=== PATIENT | female | born 1955 | race Caucasian/White ===

== ENCOUNTER 2020-03-24 10:01 | Outpatient (CLI) | payer OTHER ==
--- NOTE | 2020-03-24 11:25 | MMO ---
Bilateral MAMMO Bilat Diag [facility]. CLINICAL HISTORY: Patient is 65 years old and is seen for diagnostic exam and lump or thickening in the right breast. The patient has no family history of breast cancer. The patient has no personal history of cancer. The patient has a history of left Excisional Biopsy - mole removal greather than 10 years ago. VIEWS: The views performed were: bilateral craniocaudal with tomosynthesis; bilateral mediolateral oblique with tomosynthesis; and bilateral mediolateral with tomosynthesis. FILMS COMPARED: The present examination has been compared to prior imaging studies performed at [facility] on 07/17/2014, at [facility] on 03/24/2020, and at [facility] on 04/03/2013 and 11/03/2015. This study has been interpreted with the assistance of computer-aided detection. MAMMOGRAM FINDINGS: There are scattered fibroglandular densities. Finding 1: There are stable benign appearing calcifications seen in both breasts. Finding 2: There is a stable asymmetry seen in the sub-areolar region of the right breast. Mild ductal dilatation. There are no suspicious masses, suspicious calcifications, or new areas of architectural distortion. IMPRESSION: THERE IS NO MAMMOGRAPHIC EVIDENCE OF MALIGNANCY. A ROUTINE FOLLOW-UP MAMMOGRAM IN 1 YEAR IS RECOMMENDED. THE RESULTS OF THIS EXAM WERE SENT TO THE PATIENT. ACR BI-RADS Category 2 - Benign finding MAMMOGRAPHY NOTE: 1. A negative mammogram report should not delay a biopsy if a dominant of clinically suspicious mass is present. 2. Approximately 10% to 15% of breast cancers are not detected by mammography. 3. Adenosis and dense breasts may obscure an underlying neoplasm. Reported by: KAVITA RUELAS MD Electonically Signed: [id number]
--- NOTE | 2020-03-24 12:46 | ULT ---
RIGHT BREAST ULTRASOUND: Date: 03/24/2020 HISTORY: Patient presents with a palpable finding in the subareolar region of the right breast at 6 o'clock. FINDINGS: There are some borderline to mildly dilated ducts in the retroareolar region. The largest duct measur es approximately 0.4 cm. No evidence for intraductal solid mass. IMPRESSION: Several minimally dilated or borderline dilated ducts in the subareolar retroareolar region of the ri ght breast accounting for the palpable finding. BI-RADS Category 2 - Benign findings. Continue annual follow-up screening mammograms.
== END 2020-03-24 10:02 | disposition home or self-care (01) ==
LOC: BICMAMMO 10:01
PROVIDERS: ATTEND Surgery
DX: N63.10 Unspecified lump in the right breast, unspecified quadrant (principal)
CPT/HCPCS: 77066; G0279